=== PATIENT | male | born 1945 | race Caucasian/White ===

== ENCOUNTER 2020-07-02 05:55 | Emergency (ER) | payer MEDICARE, OTHER ==
[~2020-07-02] VITALS: Ht 170.2 cm; Wt 65.0 kg
--- NOTE | 2020-07-02 05:57 | NUR ---
74 YEAR OLD MALE TO ED FOR RIGHT FLANK PAIN AND DYSURIA W PMHX OF RENAL STONES.
[2020-07-02] MEDS ORDERED: HYDROmorphone 1 MG/ML, 1ML INJ ONE ×2 (06:15→07:33)
[2020-07-02] MEDS ORDERED: ONDANSETRON 2MG/ML, 2ML ONE (06:16)
[2020-07-02] MEDS: HYDROmorphone 1 MG/ML, 1ML INJ IVPush PRN ×2 (06:26→07:38)
[2020-07-02 06:27] LABS: BASOPHILS % (AUTO) 1 % (0-1); EOSINOPHILS % (AUTO) 2 % (1-7); LYMPHOCYTES % (AUTO) 20 % (22-44); MEAN CORPUSCULAR HEMOGLOBIN 32.5 pg (27.5-34.5); MEAN CORPUSCULAR HGB CONC 33.8 g/dL (33.2-36.2); MEAN PLATELET VOLUME 7.4 fL (7.4-10.4); MONOCYTES % (AUTO) 10 % (2-9); NEUTROPHILS % (AUTO) 68 % (42-75); PLATELET COUNT 341 x10^3/uL (130-400); RED BLOOD COUNT 5.07 x10^6/uL (4.38-5.82); RED CELL DISTRIBUTION WIDTH 13.6 % (9.4-14.8)
[2020-07-02] MEDS ORDERED: ONDANSETRON 2MG/ML, 2ML IVPush ONE (06:30)
[2020-07-02] MEDS ORDERED: SODIUM CHLORIDE FLUSH 10ML SYR IVF ONE (06:30)
[2020-07-02 06:39] LABS: ANION GAP 7 mmol/L (5-15); CALCIUM 8.9 mg/dL (8.5-10.1); CHLORIDE 112 mmol/L (98-107); CREATININE 1.37 mg/dL (0.7-1.3)
[2020-07-02 06:49] LABS: MD NO
--- NOTE | 2020-07-02 07:15 | NUR ---
report received from [facility].
--- NOTE | 2020-07-02 07:40 | NUR ---
PT MEDICATED PER EMAR. PT TOLERATED WELL.
--- NOTE | 2020-07-02 07:46 | NUR ---
urinal at bedside. pt aware of urine sample
[2020-07-02] MEDS ORDERED: KETOROLAC 30 MG/1 ML IVPush ONE (08:30)
[2020-07-02] MEDS ORDERED: KETOROLAC 30 MG/1 ML ONE (08:41)
--- NOTE | 2020-07-02 08:46 | NUR ---
pt medicated per emar. pt tolerated well. water provided for urine sample. edmd stated" we can wait. give some water." urinal at bedside still. pt aware of ua.
[2020-07-02 09:49] VITALS: BP 109/48
--- NOTE | 2020-07-02 09:49 | NUR ---
pt provided urine sample. urine collected and ua sent.
[2020-07-02 10:01] LABS: MICROSCOPIC AUTO
--- NOTE | 2020-07-02 10:39 | NUR ---
Patient given discharge instructions and they have confirmed that they understand the instructions. Patient ambulatory with steady gait.
== END 2020-07-02 10:40 | disposition home or self-care (01) ==
LOC: ED 07:43
DX: N20.0 Calculus of kidney (principal); R31.9 Hematuria, unspecified; Z86.73 Personal history of transient ischemic attack (TIA), and cerebral infarction without residual deficits
CPT/HCPCS: 36415; 74176; 80048; 81001; 82040; 85025; 96374; 96375; 96376; 99284; J1170; J1885; J2405